=== PATIENT | male | born 1980 | race Caucasian/White ===

== ENCOUNTER 2022-08-16 11:30 | Emergency (ER) | payer OTHER ==
[2022-08-16] MEDS ORDERED: BUPIVACAINE 0.5% PF 10 ML VIAL ONE (11:52)
[2022-08-16] MEDS ORDERED: LIDOCAINE 1% MPF 5 ML VIAL ONE (11:52)
--- NOTE | 2022-08-16 12:23 | EDPHYS ---
Physician Documentation [facility] Name: Rohan Molina Age: 41 yrs Sex: Male : 1980 Arrival Date: 08/16/2022 Time: 11:33 Bed 3 Private MD: ED Physician Mau Elizabeth HPI: 08/16 12:11 This 41 yrs old Male presents to ER via EMS with complaints of Thumb Injury. thiago Historical: - Allergies: 11:47 No Known Allergies; aa5 - Home Meds: 11:47 None [Active]; aa5 - PMHx: 11:47 None; aa5 - PSHx: 11:47 None; aa5 - Immunization history:: Adult Immunizations unknown. - Social history:: Smoking status: Patient/guardian denies using tobacco. ROS: 12:14 Constitutional: Negative for fever, chills, and weight loss, Eyes: Negative for injury, thiago pain, redness, and discharge, ENT: Negative for injury, pain, and discharge, Neck: Negative for injury, pain, and swelling, Cardiovascular: Negative for chest pain, palpitations, and edema, Respiratory: Negative for shortness of breath, cough, wheezing, and pleuritic chest pain, Abdomen/GI: Negative for abdominal pain, nausea, vomiting, diarrhea, and constipation, Back: Negative for injury and pain, : Negative for injury, bleeding, discharge, and swelling, Skin: Negative for injury, rash, and discoloration, Neuro: Negative for headache, weakness, numbness, tingling, and seizure, Psych: Negative for depression, anxiety, suicide ideation, homicidal ideation, and hallucinations, Allergy/Immunology: Negative for hives, rash, and allergies, Endocrine: Negative for neck swelling, polydipsia, polyuria, polyphagia, and marked weight changes, Hematologic/Lymphatic: Negative for swollen nodes, abnormal bleeding, and unusual bruising. 12:14 MS/extremity: Positive for decreased range of motion, laceration, pain, of the dorsal aspect of distal phalanx of left thumb and palmar aspect of distal phalanx of left thumb. Exam: 12:14 Constitutional: This is a well developed, well nourished patient who is awake, alert, thiago and in no acute distress. Head/Face: Normocephalic, atraumatic. Eyes: Pupils equal round and reactive to light, extra-ocular motions intact. Lids and lashes normal. Conjunctiva and sclera are non-icteric and not injected. Cornea within normal limits. Periorbital areas with no swelling, redness, or edema. ENT: Nares patent. No nasal discharge, no septal abnormalities noted. Tympanic membranes are normal and external auditory canals are clear. Oropharynx with no redness, swelling, or masses, exudates, or evidence of obstruction, uvula midline. Mucous membranes moist. Neck: Trachea midline, no thyromegaly or masses palpated, and no cervical lymphadenopathy. Supple, full range of motion without nuchal rigidity, or vertebral point tenderness. No Meningismus. Chest/axilla: Normal chest wall appearance and motion. Nontender with no deformity. No lesions are appreciated. Cardiovascular: Regular rate and rhythm with a normal S1 and S2. No gallops, murmurs, or rubs. Normal PMI, no JVD. No pulse deficits. Respiratory: Lungs have equal breath sounds bilaterally, clear to auscultation and percussion. No rales, rhonchi or wheezes noted. No increased work of breathing, no retractions or nasal flaring. Abdomen/GI: Soft, non-tender, with normal bowel sounds. No distension or tympany. No guarding or rebound. No evidence of tenderness throughout. Back: No spinal tenderness. No costovertebral tenderness. Full range of motion. Male : Normal genitalia with no discharge or lesions. Skin: Warm, dry with normal turgor. Normal color with no rashes, no lesions, and no evidence of cellulitis. Neuro: Awake and alert, GCS 15, oriented to person, place, time, and situation. Cranial nerves II-XII grossly intact. Motor strength 5/5 in all extremities. Sensory grossly intact. Cerebellar exam normal. Normal gait. Psych: Awake, alert, with orientation to person, place and time. Behavior, mood, and affect are within normal limits. 12:14 Musculoskeletal/extremity: Extremities: grossly normal except: decreased ROM, pain, ROM: limited active range of motion due to pain, limited passive range of motion due to pain, Circulation is intact in all extremities. Sensation intact. Tendon exam: unable to examine Vital Signs: 11:33 BP 125 / 68; Pulse 72; Resp 20 S; Temp 98.3(O); Pulse Ox 99% on R/A; Weight 68.04 kg aa5 (R); Height 5 ft. 7 in. (170.18 cm) (R); Pain 10/10; 13:45 BP 124 / 80; Pulse 66; Resp 18 S; Pulse Ox 100% on R/A; aa5 11:33 Body Mass Index 23.49 (68.04 kg, 170.18 cm) aa5 Procedures: 12:17 Nerve block: (digital) of dorsal aspect of proximal phalanx of left thumb and palmar thiago aspect of proximal phalanx of left thumb Medication: Lidocaine 1% without epinephrine Marcaine 0.5%, Amount: 8 mls were injected, Effect: the patient's symptoms are improved, markedly, Set up for procedure. Performed by Mau Elizabeth MD Patient tolerated well. MDM: 11:36 Patient medically screened. thiago 12:17 Differential diagnosis: dislocation, open fracture. Data reviewed: vital signs, nurses thiago notes, lab test result(s), radiologic studies. Data interpreted: media monitor: rate is 72 beats/min, rhythm is regular, Pulse oximetry: on room air. Test interpretation: by ED physician or midlevel provider: plain radiologic studies. Counseling: I had a detailed discussion with the patient and/or guardian regarding: the historical points, exam findings, and any diagnostic results supporting the discharge/admit diagnosis, lab results, radiology results, the need to transfer to another facility, for higher level of care, [facility] does not immediately have the required specialist. 08/16 12:10 Order name: CBC with Diff; Complete Time: 14:35 [facility] 08/16 12:10 Order name: Comprehensive Metabolic Panel; Complete Time: 14:35 thiago 08/16 11:52 Order name: Hand Left 3 View XRAY; Complete Time: 14:35 aa5 08/16 12:10 Order name: PT-INR; Complete Time: 14:35 thiago 08/16 12:45 Order name: SARS RAPID; Complete Time: 14:35 eb 08/16 11:47 Order name: Dressing - Wound; Complete Time: 12:12 aa5 08/16 11:47 Order name: Gloves, Sterile; Complete Time: 11:49 aa5 08/16 11:47 Order name: Setup Suture Tray; Complete Time: 11:49 aa5 08/16 12:10 Order name: NPO; Complete Time: 12:12 thiago Administered Medications: 12:10 Drug: Bupivacaine (0.5 %) 1 vials {Note: given by Dr. Elizabeth for pain management to aa5 left thumb, nerve block. .} Volume: 10 ml; Route: Infiltration; 12:10 Drug: Lidocaine (1 %) 1 vials {Note: given by Dr. 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 Exp: aa5 01/18/2024. Lot #: [id number]. } Route: IM; Site: right deltoid; 13:00 Follow up: Response: No adverse reaction aa5 Disposition Summary: 08/16/22 12:22 Transfer Ordered Transfer Location: [facility] Reason: Higher level of care thiago Condition: Stable thiago Problem: new thiago Symptoms: have improved thiago Accepting Physician: to [facility](08/16/22 15:49) mb9 Diagnosis - Fracture of unspecified phalanx of left thumb, initial encounter for open fracture thiago - large soft tissue avulsion, bony exposure, ligament injury (08/16/22 14:36) Forms: - Medication Reconciliation Form thiago - SBAR form thiago Signatures: Dispatcher [employer] EDMau Rivers MD MD cha Calderon, Audri RN RN aa5 Rajwinder Mcbride RN RN mb9 Corrections: (The following items were deleted from the chart) 13:12 12:22 to td thiago thiago 13:12 12:22 Fracture of unspecified phalanx of left thumb, initial encounter for open thiago fracture thiago 14:36 13:12 to td thiago thiago 14:36 13:12 Fracture of unspecified phalanx of left thumb, initial encounter for open thiago fracture - large soft tissue avulsion, bony exposure thiago 15:49 14:36 to [facility] thiago mb9
--- NOTE | 2022-08-16 12:23 | ER ---
Nurse's Notes [facility] Name: Rohan Molina Age: 41 yrs Sex: Male : 1980 Arrival Date: 08/16/2022 Time: 11:33 Bed 3 Private MD: Diagnosis: Fracture of unspecified phalanx of left thumb, initial encounter for open fracture-large soft tissue avulsion, bony exposure, ligament injury Presentation: 08/16 11:33 Chief complaint: EMS states: Partial amputation to tip of left thumb, pt was cutting aa5 meat with a band saw. EMS reports bone exposure to left thumb. Care ACCOUNT MANAGER SALES REPRESENTATIVE: 20G to R F, 100mcg Fentanyl IV, 450cc NS bolus. 11:33 Coronavirus screen: At this time, the client does not indicate any symptoms associated aa5 with coronavirus-19. Ebola Screen: No symptoms or risks identified at this time. Initial Sepsis Screen: Does the patient meet any 2 criteria? No. Patient's initial sepsis screen is negative. Does the patient have a suspected source of infection? No. Patient's initial sepsis screen is negative. Risk Assessment: Do you want to hurt yourself or someone else? Patient reports no desire to harm self or others. Onset of symptoms was August 16, 2022. 11:33 Acuity: MINDY 2 aa5 11:33 Method Of Arrival: EMS: [facility] aa5 11:33 Transition of care: [facility] in [place], [place]. Pt accompanied by 2 aa5 [facility] guards. Historical: - Allergies: 11:47 No Known Allergies; aa5 - Home Meds: 11:47 None [Active]; aa5 - PMHx: 11:47 None; aa5 - PSHx: 11:47 None; aa5 - Immunization history:: Adult Immunizations unknown. - Social history:: Smoking status: Patient/guardian denies using tobacco. Assessment: 11:52 General: Appears uncomfortable, Behavior is anxious. Pain: Complains of pain in left mb9 thumb Pain currently is 10 out of 10 on a pain scale. Quality of pain is described as aching, throbbing, piercing, Pain began suddenly. Neuro: Gutierrez Agitation-Sedation Scale (RASS): 0 - Alert and Calm Level of Consciousness is awake, alert, obeys commands, Oriented to person, place, time, situation, Appropriate for age. Cardiovascular: Heart tones S1 S2 present Rhythm is regular. Respiratory: Airway is patent Respiratory effort is even, unlabored, Respiratory pattern is regular, symmetrical, Breath sounds are clear bilaterally. GI: No signs and/or symptoms were reported involving the gastrointestinal system. : No signs and/or symptoms were reported regarding the genitourinary system. EENT: No signs and/or symptoms were reported regarding the EENT system. Derm: Skin is pink, warm \T\ dry. 11:52 Musculoskeletal: Range of motion: limited in MCP of left thumb and IP of left thumb mb9 partial amputation in left thumb. No bleeding present. 12:30 Reassessment: Patient denies pain at this time. Patient states feeling better. Patient mb9 states symptoms have improved. 13:45 Reassessment: Report given to LAURIE Knight at [facility], ETA for ambulance aa5 for transfer is 2 hours. Care Home guards and pt notified. . 13:50 Reassessment: Patient denies pain at this time. Dressing to left thumb soaked with aa5 blood, changed dressing to left thumb, dressed with saline gauze and Coban, no active bleeding noted. . Vital Signs: 11:33 BP 125 / 68; Pulse 72; Resp 20 S; Temp 98.3(O); Pulse Ox 99% on R/A; Weight 68.04 kg aa5 (R); Height 5 ft. 7 in. (170.18 cm) (R); Pain 10/10; 13:45 BP 124 / 80; Pulse 66; Resp 18 S; Pulse Ox 100% on R/A; aa5 11:33 Body Mass Index 23.49 (68.04 kg, 170.18 cm) aa5 ED Course: 11:33 Patient arrived in ED. eb 11:33 Arm band placed on. aa5 11:33 Patient has correct armband on for positive identification. Bed in low position. 1 aa5 paper products machine operator at bedside, 1 paper products machine operator outside the room, restrained by guards, pt has handcuffs attached to ankle chains by guards. 11:36 Mau Elizabeth MD is Attending Physician. thiago 11:42 Rajwinder Mcbride RN is Primary Nurse. mb9 11:46 Triage completed. aa5 12:43 initiated a transfer with Tami from the [facility]/. eb 12:46 Maintain EMS IV. Dressing intact. Good blood return noted. Site clean \T\ dry. Gauge \T\ aa 5 site: 20G to R FA. 13:07 Hand Left 3 View XRAY In Process Unspecified. EDMS 13:[address] Mcgraw the ortho foundation stage teacher for [facility] with Dr. Elizabeth for eb patient transfer consultation. 13:10 administrative approval given by Tami Suarez/ patient has been accepted to [facility] 741 eb bed 1/ Dr. Mcgraw has accepted the patient in transport/. Administered Medications: 12:10 Drug: Bupivacaine (0.5 %) 1 vials {Note: given by Dr. Elizabeth for pain management to aa5 left thumb, nerve block. .} Volume: 10 ml; Route: Infiltration; 12:10 Drug: Lidocaine (1 %) 1 vials {Note: given by Dr. 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 Exp: aa5 01/18/2024. Lot #: [id number]. } Route: IM; Site: right deltoid; 13:00 Follow up: Response: No adverse reaction aa5 Medication: 12:40 Vaccine Information Statement (VIS) provided today. Questions and/or concerns aa5 addressed. VIS edition date: April 19, 2021. Outcome: 12:22 ER care complete, transfer ordered by . thiago 15:30 Transferred by ground EMS to [facility], Transfer form mb9 completed. X-rays sent w/ patient. 15:30 Transferred Note: [facility] given [facility] 15:30 Condition: stable 15:30 Instructed on the need for transfer. 15:31 Patient left the ED. mb9 Signatures: Dispatcher [employer] Mau Chaney MD MD cha Calderon, Audri RN RN aa5 Marlee Young Mary Beth RN RN mb9 Corrections: (The following items were deleted from the chart) 12:01 11:33 Chief complaint: EMS states: amputation to tip of left thumb, pt was cutting meat aa5 with a band saw. EMS reports bone exposure to left thumb. Care ACCOUNT MANAGER SALES REPRESENTATIVE: 20G to R F, 100mcg Fentanyl IV, 450cc NS bolus. aa5 12:13 11:52 Musculoskeletal: Amputation of left thumb. Range of motion: limited in IP of left mb9 thumb and MCP of left thumb mb9 13:50 11:33 Pulse 72bpm; Resp 20bpm; Spontaneous; Pulse Ox 99% RA; Temp 98.3F Oral; 68.04 kg aa5 Reported; Height 5 ft. 7 in. Reported; BMI: 23.4; Pain 10/10; aa5 16:18 15:49 Patient left the ED. mb9 mb9
[2022-08-16] MEDS ORDERED: TETANUS & DIPHTHERIA TOX,ADULT 0.5 ML VIAL ONE (12:31)
[2022-08-16] MEDS ORDERED: CEFAZOLIN SODIUM 1 GM/VIAL ONE (12:31)
[2022-08-16] MEDS ORDERED: NA CHLORIDE 0.9% 100 ML IV ONE (12:31)
[2022-08-16 12:32] LABS: Absolute Lymphocytes (CBC) 1.3 K/uL (0.7-4.9); Hematocrit 39.1 % (39.6-49.0); Lymphocytes % 13.8 % (15.3-44.8); MPV 8.8 fL (7.6-11.3); RBC Red Blood Cell Count 4.25 M/uL (4.33-5.43)
[2022-08-16 12:36] LABS: Protime INR 1.16
[2022-08-16 12:56] LABS: Albumin 4.3 g/dL (3.4-5.0); Bilirubin Total 0.4 mg/dL (0.2-1.0); Potassium 3.6 mmol/L (3.5-5.1); Protein, Total 6.9 g/dL (6.4-8.2)
[2022-08-16 13:28] LABS: SARS-CoV-2 Antigen Rapid Res Negative (Negative)
--- NOTE | 2022-08-16 13:38 | RAD REPORT ---
EXAM DESCRIPTION: RAD -Hand Left 3 View - 08/16/2022 1:05 pm CLINICAL HISTORY: Left hand pain status post injury FINDINGS: No fracture is seen. Mild widening of the medial aspect of the first IP joint may indicate a ligamentous injury. If clinic ally indicated further evaluation with MRI could be obtained A bandage overlies the first digit obscuring detail somewhat.
[2022-08-16 16:03] VITALS: TEMP 98.3
[2022-08-16 16:05] VITALS: BP 124/80; O2SAT 100
== END 2022-08-16 15:49 | disposition short-term general hospital (02) ==
LOC: ER 11:30
DX: S62.502B Fracture of unspecified phalanx of left thumb, initial encounter for open fracture (principal); Z20.822 Contact with and (suspected) exposure to COVID-19; Z23 Encounter for immunization
CPT/HCPCS: 96365; 85025; 36415; 85610; 80053; 73130; 90471; 90714; 64450; 99285; 87811; J0690; J2001